=== PATIENT | male | born 1985 | race Caucasian/White ===

== ENCOUNTER 2021-01-11 16:55 | Outpatient (CLI) | payer OTHER | END 2021-01-11 16:56 | disposition home or self-care (01) | LOC: LAB.N 16:55 | PROVIDERS: ATTEND Orthopaedic Surgery Foot and Ankle Surgery | DX: E55.9 Vitamin D deficiency, unspecified (principal) | CPT/HCPCS: 36415; 82306 ==

== ENCOUNTER 2021-04-19 12:29 | Outpatient (CLI) | payer OTHER | END 2021-04-19 12:30 | disposition home or self-care (01) | LOC: LAB.N 12:29 | PROVIDERS: ATTEND Orthopaedic Surgery Foot and Ankle Surgery | DX: R79.89 Other specified abnormal findings of blood chemistry (principal) | CPT/HCPCS: 36415; 82306 ==

== ENCOUNTER 2021-08-02 10:25 | Emergency (ER) | payer OTHER ==
[2021-08-02] MEDS ORDERED: HYDROmorphone 1 MG/ML CARPUJECT IVP STA (11:53)
--- NOTE | 2021-08-02 11:55 | ED Physician Documentation ---
History of Present Illness - Stated complaint Stated Complaint: LT LEG PX - Chief complaint Chief Complaint: Ext Problem - Additonal information Additional information: 35-year-old male presents emergency department for evaluation of shortness of air, nausea and feeling like he cannot catch his breath. He is also endorsing increased left ankle pain. He underwent orthopedic repair of his ankle 07/06/2021 at [facility] orthopedics. He reported that he was doing well until about 3 or 4 days ago when the pain in his ankle got suddenly worse. In addition to that over the last 4 to 5 days he has felt short of air even at rest. Feels like he cannot fully catch his breath. He denies any pleuritic chest pain or calf pain. No personal history of DVT or cancer. Review of Systems Constitutional: denies: Fever, Chills Eyes: reports: Reviewed and negative Ears: reports: Reviewed and negative Nose: reports: Reviewed and negative Throat: reports: Reviewed and negative Cardiac: reports: Chest pain / pressure, Palpitations. denies: Pedal edema, Calf pain Respiratory: reports: Dyspnea. denies: Cough, Hemoptysis, Wheezing GI: denies: Abdominal Pain, Abdominal Swelling : reports: Reviewed and negative Skin: reports: Reviewed and negative Musculoskeletal: reports: Joint pain (Left ankle) PD PAST MEDICAL HISTORY - Past Medical History Past Medical History: Yes Cardiovascular: None Respiratory: Sleep apnea Neuro: Other Endocrine/Autoimmune: HyPOthyroidism GI: None : None HEENT: None Musculoskeletal: Other Derm: None Other Past Medical History: [place] disease - Past Surgical History Past Surgical History: Yes HEENT: Other - Present Medications Home Medications: Ambulatory Orders Medication Instructions Recorded Confirmed Amox/Clav 875/125 [Augmentin] 1 each PO Q12H #14 tablet 08/02/21 Azithromycin [Zithromax] 0 mg PO DAILY #6 tablet 08/02/21 buPROPion [Wellbutrin Xl] 150 mg ORAL DAILY 08/02/21 08/02/21 - Allergies Allergies/Adverse Reactions: Allergies Allergy/AdvReac Type Severity Reaction Status Date / Time No Known Drug Allergies Allergy Verified 08/02/21 10:32 - Social History Does the pt smoke?: No Smoking Status: Never smoker Does the pt drink ETOH?: No Does the pt have substance abuse?: Yes Substance Use and Type: CBD oil / Products - Immunizations Immunizations are current?: Yes PD ED PE NORMAL - General General: Alert and oriented X 3, No acute distress - HEENT HEENT: PERRL - Neck Neck: Supple, no meningeal sign - Cardiac Cardiac: RRR, No murmur, No gallop - Respiratory Respiratory: No respiratory distress, Clear bilaterally - Abdomen Abdomen: Normal bowel sounds, Soft, Non tender - Back Back: No CVA TTP, No spinal TTP - Derm Derm: Normal color, Warm and dry, No rash, Other (Left lateral surgical incision clean dry and intact. No drainage no surrounding erythema. Mild to moderate tenderness with palpation of the lateral ankle. Held in dorsi flexion. 2+ pedal pulse) - Extremities Extremities: No deformity, No tenderness to palpate - Neuro Neuro: Alert and oriented X 3 Eye Opening: Spontaneous Motor: Obeys Commands Verbal: Oriented GCS Score: 15 Results - Vitals Vitals: Vital Signs - 24 hr 08/02/21 08/02/21 10:33 12:18 Temperature 36.3 C L Heart Rate 94 83 Respiratory 20 17 Rate Blood Pressure 121/101 H 144/85 H O2 Saturation 99 99 Oxygen O2 Source Room air - EKG (time done) 1225 Rate: Rate (enter#) (86) Rhythm: NSR [place]: Normal Intervals: Normal ND QRS: Normal Ischemia: Normal ST segments Compare to prior EKG: Old EKG unavailable Computer interpretation: Agree with computer - Labs Labs: Laboratory Tests 08/02/21 08/02/21 12:04 12:04 WBC 7.2 RBC 4.82 Hgb 14.4 Hct 42.7 MCV 88.6 MCH 29.9 MCHC 33.7 RDW 11.9 L Plt Count 350 MPV 9.4 Neut # (Auto) 4.9 Lymph # (Auto) 1.5 [place] # (Auto) 0.6 Eos # (Auto) 0.1 Baso # (Auto) 0.1 Absolute Nucleated RBC 0.00 Nucleated RBC % 0.0 Sodium 142 Potassium 4.4 Chloride 103 Carbon Dioxide 27 Anion Gap 12.0 BUN 28 H Creatinine 1.2 Estimated GFR (MDRD) 69 L Glucose 95 Calcium 10.2 Total Bilirubin 0.9 AST 17 ALT 12 Alkaline Phosphatase 90 Total Protein 8.2 Albumin 4.8 Globulin 3.4 Albumin/Globulin Ratio 1.4 Lipase 140 H - Rads (name of study) left ankle Radiology: Final report received (no acute osseous abnormality) CT angio chest Radiology: Final report received (No evidence of central pulmonary embolism. Evaluation of segmental branches is limited by suboptimal contrast opacification. Multiple small clustered groundglass nodules in centrilobular distribution primarily involving the right upper lobe. Most consistent with infection from an atypical ) chest xr Radiology: Final report received (no acute cardiopulmonary process) CT abd Radiology: Final report received (diverticulosis without itis) PD MEDICAL DECISION MAKING - ED course Complexity details: reviewed results, re-evaluated patient, d/w patient ED course: 35-year-old male presents emergency department for evaluation of worsening left ankle pain status post ORIF 07/06/2021 with [facility] orthopedics. He is also reported over the last 4 to 5 days he has had some dyspnea and orthopnea. He feels short of breath just sitting though no hypoxia. Screening chest x-ray without findings of focal consolidation however CT angio of the chest to rule out a pulmonary embolus does show a likely atypical pneumonia developing in the right upper lobe. Patient denies any recent cough or fevers. X-ray of the ankle did not show acute fracture. The hardware is well seated. The laceration itself appears well-healed without secondary findings of infection. Advised with orthopedics. We did note a very mild lipase elevation of 140 though no abdominal pain elicited. CT of the abdomen does not show findings consistent with pancreatitis. He has noted diverticulosis without-itis. Patient will be started azithromycin and Augmentin for pneumonia. Unremarkable cardiopulmonary auscultation with normal saturations and no hypoxia.. Emergent return precautions discussed. Departure - Departure Disposition: 01 Home, Self Care Clinical Impression: Elevated lipase Pneumonia Qualifiers: Pneumonia type: due to unspecified organism Laterality: right Lung location: upper lobe of lung Qualified Code(s): J18.9 - Pneumonia, unspecified organism Pain in left ankle Qualifiers: Chronicity: acute Qualified Code(s): M25.572 - Pain in left ankle and joints of left foot Condition: Stable Record reviewed to determine appropriate education?: Yes Instructions: Pneumonia Dc Prescriptions: Amox/Clav 875/125 [Augmentin] 1 each PO Q12H #14 tablet Azithromycin [Zithromax] 0 mg PO DAILY #6 tablet Comments: Ritchie wall are seen today in the emergency department for left ankle pain as well as some shortness of air after recent surgery. The CT of your lungs did not show a blood clot. However it does appears that you are developing an early pneumonia in your right lung. A prescription for 2 antibiotics has been sent to the [facility] in [place]. Please fill this prescription and begin taking as directed. We do note a very mildly elevated lipase on your labs today. This is the only abnormality. The CT of your belly did not show any findings to suggest inflammation of the pancreas. This may be a normal variant for you but you should discuss this with your primary care doctor. The wound on your ankle appears to be healing well without findings of infection. I encourage you to follow-up with orthopedics to determine long-term pain control.
[2021-08-02 12:09] LABS: BASOPHILS # (AUTO) 0.1 10^3/uL (0.0-0.1); BASOPHILS % (AUTO) 0.7 %; EOSINOPHILS # (AUTO) 0.1 10^3/uL (0.0-0.7); EOSINOPHILS % (AUTO) 1.4 %; HCT - HEMATOCRIT 42.7 % (42.0-52.0); HGB - HEMOGLOBIN 14.4 g/dL (14.0-18.0); LYMPHOCYTES # (AUTO) 1.5 10^3/uL (1.5-3.5); LYMPHOCYTES % (AUTO) 20.8 %; MEAN CORPUSCULAR HEMOGLOBIN 29.9 pg (27.0-31.0); MEAN CORPUSCULAR HGB CONC 33.7 g/dL (32.0-36.0); MEAN CORPUSCULAR VOLUME 88.6 fL (80.0-94.0); MEAN PLATELET VOLUME 9.4 fL (7.4-11.4); MONOCYTES # (AUTO) 0.6 10^3/uL (0.0-1.0); MONOCYTES % (AUTO) 8.5 %; NEUTROPHILS # (AUTO) 4.9 10^3/uL (1.5-6.6); PLT - PLATELET COUNT 350 10^3/uL (130-450); RED BLOOD COUNT 4.82 10^6/uL (4.70-6.10); RED CELL DISTRIBUTION WIDTH 11.9 % (12.0-15.0); WHITE BLOOD COUNT 7.2 x10^3/uL (4.8-10.8)
--- NOTE | 2021-08-02 12:11 | XRAY Report ---
PROCEDURE: Chest 1 View X-Ray INDICATIONS: chest pain TECHNIQUE: One view of the chest was acquired. COMPARISON: None. FINDINGS: SUPPORT DEVICES: None. LUNGS/PLEURA: Reduced lung lungs. No focal consolidation, pleural effusion or space-occupying pneumot horax. MEDIASTINUM: The cardiomediastinal silhouette is within normal limits. BONES/SOFT TISSUES: No acute abnormality. IMPRESSION: 1.No acute cardiopulmonary abnormality. Reviewed by: Ryne Becerra MD on 08/02/2021 12:10 PM [facility] Approved by: Ryne Becerra MD on 08/02/2021 12:10 PM [facility] Station ID: [id number]
--- NOTE | 2021-08-02 12:14 | XRAY Report ---
PROCEDURE: Ankle 3 View LT INDICATIONS: pain after surgery TECHNIQUE: 3 views of the ankle were acquired. COMPARISON: None. FINDINGS: BONES: No acute, displaced fracture or dislocation. The ankle mortise appears maintained. 2 surgical pins traverse the posterior subtalar joint with evidence of arthrodesis. SOFT TISSUES: Lateral soft tissue swelling. IMPRESSION: 1.No acute osseous abnormality. Reviewed by: Ryne Becerra MD on 08/02/2021 12:12 PM [facility] Approved by: Ryne Becerra MD on 08/02/2021 12:12 PM [facility] Station ID: [id number]
[2021-08-02] MEDS ORDERED: IOPAMIDOL-300 100 ML VIAL ONE (12:17)
[2021-08-02 12:21] LABS: ALBUMIN 4.8 g/dL (3.2-5.5); ALBUMIN/GLOBULIN RATIO 1.4 (1.0-2.2); BILIRUBIN,TOTAL 0.9 mg/dL (0.2-1.0); CALCIUM 10.2 mg/dL (8.5-10.3); CREATININE 1.2 mg/dL (0.6-1.2); POTASSIUM 4.4 mmol/L (3.5-5.0); TOTAL PROTEIN 8.2 g/dL (6.7-8.2)
--- NOTE | 2021-08-02 13:42 | CT Report ---
PROCEDURE: ANGIO CHEST W/WO INDICATIONS: soa after recent surgery; r/o PE CONTRAST: IV CONTRAST: Isovue 300 ml: 100 PO CONTRAST: *NO PO CONTRAST TECHNIQUE: After the administration of intravenous contrast, 2 mm axial images were acquired from the pulmonary apices to the posterior costophrenic angles during the arterial phase. In addition, 1 mm lung kernel and 5 mm soft tissue kernel reconstructions were performed. 3-dimensional coronal oblique maximum int ensity projection (MIP) reformats, 8 mm axial MIP, and 5 mm coronal and sagittal MPR reformats were t hen performed through the thorax. For radiation dose reduction, the following was used: automated exp osure control, adjustment of mA and/or kV according to patient size. COMPARISON: None. FINDINGS: Image quality: Excellent. Pulmonary arteries: There is suboptimal contrast opacification limiting evaluation of subsegmental p ulmonary arteries. No intraluminal filling defects to suggest central pulmonary embolism. Lungs and pleura: There are multiple small clustered groundglass nodules with indistinct margins in a centrilobular distribution are merely within the right upper lobe. There is also mild involvement in the right lower lobe. No acute consolidation. No pleural effusions or pneumothorax. Central and per ipheral airways are patent. Mediastinum: Heart size is normal, without pericardial effusion. No mediastinal or hilar adenopathy . Thoracic aorta is normal in caliber and enhancement. Esophagus is normal in caliber, without hiat al hernia. Bones and chest wall: No suspicious bony lesions. Ribs and thoracic spine appear intact throughout. No axillary or supraclavicular adenopathy. The visualized thyroid demonstrates no discrete nodules . Abdomen: Visualized upper abdominal solid organs appear normal in the early arterial phase of enhanc ement. IMPRESSION: 1. No evidence of central pulmonary embolism. Evaluation of subsegmental branches is limited by subop timal contrast opacification. 2. Multiple small clustered groundglass nodules in a centrilobular distribution, primarily involving the right upper lobe. The findings are consistent with infection from an atypical organism or an infl ammatory process such as hypersensitivity pneumonitis. Reviewed by: Lamonte Francis MD on 08/02/2021 1:41 PM PST Approved by: Lamonte Francis MD on 08/02/2021 1:41 PM PST Station ID: [id number]
--- NOTE | 2021-08-02 14:00 | CT Report ---
PROCEDURE: Abdomen/Pelvis W INDICATIONS: upper abdominal pain/nausea CONTRAST: IV CONTRAST: Isovue 300 ml: 100 PO CONTRAST: *NO PO CONTRAST TECHNIQUE: After the administration of intravenous contrast, 5 mm thick sections acquired from the diaphragms to the symphysis. 5 mm thick coronal and sagittal reformats were acquired. For radiation dose reducti on, the following was used: automated exposure control, adjustment of mA and/or kV according to lazaro ent size. COMPARISON: Concurrent CTA of the chest. FINDINGS: Image quality: Excellent. ABDOMEN: Lung bases: Lung bases are clear. Heart size is normal. Solid organs: Evaluation of the liver demonstrates no focal hepatic lesions. Gallbladder appears with in normal limits without calcified gallstones. Biliary system is non dilated. The spleen is normal i n size. Pancreas enhances normally without peripancreatic fat stranding or fluid collections. No adr enal nodules. Kidneys demonstrate no hydronephrosis. Peritoneum and bowel: Bowel loops demonstrate normal wall thickness and caliber. No pericecal planta r changes to suggest appendicitis. There is colonic diverticulosis without acute diverticulitis. No free fluid or air. Nodes and vessels: No retroperitoneal or mesenteric adenopathy by size criteria. Aorta and inferior vena cava are normal in size. Miscellaneous: No ventral hernias. PELVIS: Genitourinary: Bladder wall thickness is normal. Miscellaneous: No inguinal hernias or adenopathy. Bones: No suspicious bony lesions. No vertebral body compression fractures. IMPRESSION: 1. No acute abdominal abnormality. 2. Colonic diverticulosis without acute diverticulitis. Reviewed by: Lamonte Francis MD on 08/02/2021 1:59 PM PST Approved by: Lamonte Francis MD on 08/02/2021 1:59 PM PST Station ID: [id number]
[2021-08-02 15:07] VITALS: BP 138/84
[2021-08-02] MEDS ORDERED: IOPAMIDOL-300 100 ML VIAL IVP ONE (19:08)
== END 2021-08-02 15:06 | disposition home or self-care (01) ==
LOC: ED 10:25
DX: J18.9 Pneumonia, unspecified organism (principal); G89.18 Other acute postprocedural pain; R74.8 Abnormal levels of other serum enzymes; Z20.822 Contact with and (suspected) exposure to COVID-19
CPT/HCPCS: 36415; 71045; 71275; 73610; 74177; 80053; 83690; 85025; 87635; 93005; 96374; 99283; 99284; J1170; Q9967

== ENCOUNTER 2021-08-02 20:15 | Emergency (ER) | payer OTHER ==
[2021-08-02 20:24] VITALS: BP 131/98
[2021-08-02] MEDS ORDERED: HYDROmorphone 1 MG/ML CARPUJECT IM STA ×2 (20:34→21:15)
--- NOTE | 2021-08-02 20:47 | ED Physician Documentation ---
History of Present Illness - Stated complaint Stated Complaint: LEFT ANKLE PX - Chief complaint Chief Complaint: Ext Problem - Additonal information Additional information: 35-year-old male returns to the emergency department for evaluation of worsening left ankle pain. I saw this gentleman earlier in the day for left ankle pain as well as shortness of air. Subsequent testing including a CT pulmonary angio which was done to rule out a pulmonary embolus showed likely atypical right lung pneumonia. Patient was started on azithromycin and Augmentin. X-ray of the left ankle shows no osseous abnormalities. The ankle mortise was maintained with 2 surgical transverse pins. He underwent ORIF of a left ankle fracture at [facility] on 06 July. He has had no fevers. His screening labs earlier in the day were unremarkable. Specifically no leukocytosis. He has not seen Ortho For 3 weeks and is now out of pain medicine. He reports that over the last 24 hours he has had a persistent throbbing pain in the left ankle. Orthopedist: Becca Garcia with [facility] PAST MEDICAL HISTORY - Past Medical History Past Medical History: Yes Cardiovascular: None Respiratory: Sleep apnea Neuro: Other Endocrine/Autoimmune: HyPOthyroidism GI: None : None HEENT: None Musculoskeletal: Other Derm: None - Past Surgical History Past Surgical History: Yes HEENT: Other - Present Medications Home Medications: Ambulatory Orders Medication Instructions Recorded Confirmed Amox/Clav 875/125 [Augmentin] 1 each PO Q12H #14 tablet 08/02/21 08/02/21 Azithromycin [Zithromax] 0 mg PO DAILY #6 tablet 08/02/21 08/02/21 buPROPion [Wellbutrin Xl] 150 mg ORAL DAILY 08/02/21 08/02/21 - Allergies Allergies/Adverse Reactions: Allergies Allergy/AdvReac Type Severity Reaction Status Date / Time No Known Drug Allergies Allergy Verified 08/02/21 20:24 - Social History Does the pt smoke?: No Smoking Status: Never smoker Does the pt drink ETOH?: No Does the pt have substance abuse?: Yes - Immunizations Immunizations are current?: Yes PD ED PE EXPANDED - General General: Alert, In Pain - Extremities Extremities: Left ankle (Left lateral surgical incision is well approximated without swelling erythema or drainage. Tenderness to palpation.) Results - Vitals Vitals: Vital Signs - 24 hr 08/02/21 20:20 Temperature 36.5 C Heart Rate 115 H Respiratory 18 Rate Blood Pressure 131/98 H O2 Saturation 98 Oxygen O2 Source Room air - Rads (name of study) US left leg Radiology: Final report received (no dvt seen) PD MEDICAL DECISION MAKING - ED course Complexity details: reviewed results, re-evaluated patient, considered differential, d/w patient ED course: 35-year-old male presents the emergency department with worsening throbbing pain in his left ankle. He is status post ORIF of the talus joint on [address] Suarez a physician with [facility] orthopedics. He was seen earlier in the day for shortness of air as well as ankle pain. At that time the x-ray of the ankle showed an intact mortise joint. Screening labs showed no leukocytosis. He presents with no fevers. He was ultimately diagnosed with an atypical pneumonia after CT pulmonary angiogram did not demonstrate a blood clot. He has not seen his surgeon for about 3 weeks and has been out of pain medicine for a number of days. He returns to the ER tearful and quite agitated secondary to the pain. Again the surgical incision site appears well-healed without erythema or drainage. He is requesting an ultrasound to rule out a blood clot which we will complete. Ultrasound of the leg did not show findings of a DVT. There is questionable possible small hematoma near the ankle joint which could certainly be contributing to the pain. I ultimately spoke with Dr. Walton on-call for Dr. Suarez who agreed that if the US was negative, pt could be dc home with close f/u with [facility] ortho clinics. Recommend ice and elevation. Remain NWB until cleared by ortho. Pt will be dc home with a prepack for oxycodone for analgesia overnight Departure - Departure Disposition: 01 Home, Self Care Clinical Impression: Status post ORIF of fracture of ankle Left ankle pain Qualifiers: Chronicity: acute Qualified Code(s): M25.572 - Pain in left ankle and joints of left foot Condition: Stable Record reviewed to determine appropriate education?: Yes Follow-Up: BECCA BENAVIDEZ MD [Physician No Access] - Comments: Ritchie, you were seen in the ED for worsening left ankle pain. Your surgical incision is clean with no signs of infection. You have no fevers and your WBC earlier in the day was normal. The xray of your ankle earlier in the day was also unremarkable with no finding to suggest infection or misplaced hardware. We did do an ultrasound of your left leg and there were no blood clots seen. We suspect that there may be a small hematoma around your ankle joint. This can cause increased ankle pain. however there is no specific treatment for these. They simply get reabsorbed with time. I discussed yoru case with Dr. Walton on-call for Dr. Clemente. She recommends close follow up with the [facility] orthopedics office. Please call in the am to arrange follow up. She wants to ensure your remain non weight bearing on the left leg, wear the boot and elevate as much and as often as possible. You are given a pre-pack of pain medication for use overnight. Your orthopedist office will need to order further pain control as an outpatient
[2021-08-02] MEDS ORDERED: oxyCODONE/ACET 5/325 Prepack 4 PO STA (21:32)
--- NOTE | 2021-08-02 22:36 | Ultrasound Report ---
PROCEDURE: Duplex Ext Veins Left INDICATIONS: pain after surgery TECHNIQUE: Real-time imaging, as well as color and pulse Doppler interrogation, were performed of the lower extr emity deep veins from the inguinal ligament to the popliteal fossa. COMPARISON: None. FINDINGS: The deep veins are normally compressible, and free of intraluminal thrombus. Color and pu lse Doppler demonstrate normal phasic intraluminal flow. There is normal augmentation response to di stal compression maneuver. IMPRESSION: No evidence of deep vein thrombosis involving the left lower extremity. Reviewed by: Yoli Davenport MD, PhD on 08/02/2021 10:35 PM PST Approved by: Yoli Davenport MD, PhD on 08/02/2021 10:35 PM PST Station ID: [id number]
== END 2021-08-02 22:27 | disposition home or self-care (01) ==
LOC: ED 20:15
DX: G89.18 Other acute postprocedural pain (principal); Z96.698 Presence of other orthopedic joint implants; R06.00 Dyspnea, unspecified; R06.02 Shortness of breath; R11.0 Nausea; J18.9 Pneumonia, unspecified organism; R74.8 Abnormal levels of other serum enzymes; Z20.822 Contact with and (suspected) exposure to COVID-19
CPT/HCPCS: 36415; 71045; 71275; 73610; 74177; 80053; 83690; 85025; 87635; 93005; 93971; 96372; 96374; 99283; 99284; J1170; Q9967

== ENCOUNTER 2021-08-27 08:00 | Outpatient (CLI) | payer OTHER ==
[2021-08-27 17:45] LABS: BASOPHILS # (AUTO) 0.1 10^3/uL (0.0-0.1); BASOPHILS % (AUTO) 0.9 %; EOSINOPHILS # (AUTO) 0.1 10^3/uL (0.0-0.7); EOSINOPHILS % (AUTO) 1.6 %; HCT - HEMATOCRIT 43.2 % (42.0-52.0); HGB - HEMOGLOBIN 14.4 g/dL (14.0-18.0); LYMPHOCYTES # (AUTO) 1.5 10^3/uL (1.5-3.5); LYMPHOCYTES % (AUTO) 25.6 %; MEAN CORPUSCULAR HEMOGLOBIN 29.3 pg (27.0-31.0); MEAN CORPUSCULAR HGB CONC 33.3 g/dL (32.0-36.0); MEAN PLATELET VOLUME 9.7 fL (7.4-11.4); MONOCYTES # (AUTO) 0.5 10^3/uL (0.0-1.0); MONOCYTES % (AUTO) 8.5 %; NEUTROPHILS # (AUTO) 3.6 10^3/uL (1.5-6.6); NEUTROPHILS % (AUTO) 62.9 %; PLT - PLATELET COUNT 350 10^3/uL (130-450); RED BLOOD COUNT 4.91 10^6/uL (4.70-6.10); RED CELL DISTRIBUTION WIDTH 12.3 % (12.0-15.0); WHITE BLOOD COUNT 5.7 x10^3/uL (4.8-10.8)
[2021-08-27 18:14] LABS: ALBUMIN 5.1 g/dL (3.2-5.5); ALBUMIN/GLOBULIN RATIO 1.6 (1.0-2.2); BILIRUBIN,TOTAL 1.2 mg/dL (0.2-1.0); CALCIUM 10.1 mg/dL (8.5-10.3); CREATININE 1.3 mg/dL (0.6-1.2); POTASSIUM 4.1 mmol/L (3.5-5.0); TOTAL PROTEIN 8.2 g/dL (6.7-8.2)
[2021-08-27 18:26] LABS: THYROID STIMULATING HORMONE 1.48 uIU/mL (0.34-5.60)
== END 2021-08-27 23:59 | disposition home or self-care (01) ==
LOC: LAB.WCP 08:00
PROVIDERS: ATTEND Registered Nurse
DX: E03.9 Hypothyroidism, unspecified (principal); Z13.228 Encounter for screening for other metabolic disorders; Z13.0 Encounter for screening for diseases of the blood and blood-forming organs and certain disorders involving the immune mechanism
CPT/HCPCS: 36415; 80053; 84443; 85025

== ENCOUNTER 2021-12-10 08:00 | Outpatient (CLI) | payer OTHER ==
[2021-12-10 18:37] LABS: FECAL OCCULT BLOOD (FIT) POSITIVE (NEGATIVE); H. PYLORIS ANTIGEN STL NEGATIVE (Negative)
== END 2021-12-10 23:59 | disposition home or self-care (01) ==
LOC: LAB.R 08:00
PROVIDERS: ATTEND Family Medicine
DX: K52.9 Noninfective gastroenteritis and colitis, unspecified (principal)
CPT/HCPCS: 81599; 82274; 87045; 87177; 87209; 87329; 87338; 87427; 87449; 87493